=== PATIENT | male | born 1975 | race Caucasian/White ===

== ENCOUNTER 2023-11-29 07:02 | Day surgery (SDC) | payer OTHER ==
[~2023-11-29] VITALS: Ht 182.9 cm; Wt 97.5 kg
[~2023-11-29 07:02] MED LIST: IBUPROFEN600 MG PO; OMEPRAZOLE DR40 MG PO
[2023-11-29] MEDS ORDERED: FAMOTIDINE 10MG/ML 2ML SDV IV ONE (07:06)
[2023-11-29] MEDS ORDERED: LACTATED RINGER'S 1,000 ML IV ONE (07:06)
[2023-11-29 09:27] VITALS: BP 136/82
[2023-11-29] MEDS ORDERED: GLYCOPYRROLATE 0.2 MG/ML IV ONE (10:02)
[2023-11-29] MEDS ORDERED: LIDOCAINE HCL 2% 2ML SDV IV ONE (10:02)
[2023-11-29] MEDS ORDERED: PROPOFOL 200 MG/20 ML VIAL IV ONE (10:02)
== END 2023-11-29 09:43 | disposition home or self-care (01) | DRG 951 ==
LOC: ENDO 07:02 → ORM 09:30 → ENDO 09:43
PROVIDERS: ATTEND Surgery
PROC: 0DJD8ZZ Inspection of Lower Intestinal Tract, Via Natural or Artificial Opening Endoscopic (ICD-10-PCS; principal; 2023-11-29)
PROC: 0DJ08ZZ Inspection of Upper Intestinal Tract, Via Natural or Artificial Opening Endoscopic (ICD-10-PCS; 2023-11-29)
DX: Z12.11 Encounter for screening for malignant neoplasm of colon (principal); K64.8 Other hemorrhoids; K21.9 Gastro-esophageal reflux disease without esophagitis; Z80.0 Family history of malignant neoplasm of digestive organs; Z86.0100 Personal history of colon polyps, unspecified